=== PATIENT | female | born 1990 | race Caucasian/White ===

== ENCOUNTER 2018-03-05 23:14 | Observation (INO) | payer MEDICAID ==
[2018-03-06] MEDS ORDERED: Ondansetron 4 MG/2 ML SDV IV PRN (00:20)
[2018-03-06] MEDS ORDERED: Lactated Ringers 1,000 ML IV SCH (00:30)
[2018-03-06] MEDS: Acetaminophen 325 MG Tab PO PRN ×2 (01:23→07:49)
[2018-03-06] MEDS ORDERED: Sodium Chloride 0.9% 10 ML Syringe FLUSH PRN (03:36)
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
[2018-03-06] MEDS ORDERED: Prenatal Multivitamin with Calcium/Folic Acid/Iron Tab PO SCH (09:00)
[2018-03-06] MEDS ORDERED: Nitrofurantoin Monohydrate/Macrocrystalline 100 MG Cap PO SCH (09:00)
[2018-03-06] MEDS ORDERED: Acetaminophen/Codeine 300-30 MG Tab PO PRN (09:07)
[2018-03-06 11:55] VITALS: BP 103/66
--- NOTE | 2018-03-06 13:48 | PCM.SN ---
- Free Text/Narrative Note: Lisa presently is doing well. She reports good activity. Earlier today she had some CVA tenderness which she said was 3-4 on scale of 10 10. This is now essentially resolved. Afebrile with normal vital signs. Patient is desiring discharge home. Urine culture is pending. We'll discharge home on Macrobid.
--- NOTE | 2018-03-07 18:00 | PCM.NBDC ---
[place] Discharge Summary - Hospital Course Free Text/Narrative: Patient was transferred from [place] via ambulance for suspected pyelonephritis and possible sepsis. She been treated with Zosyn and with Rocephin. The time she arrived at [facility] she was doing very well. She remained afebrile with minimal pain throughout the rest of her hospital course. Urine culture been done in [place] as well as urinalysis. Culture is pending at this time. Please see admission history and physical for details. On hospital day 2 Lisa presently is doing well. She reports good activity. Earlier today she had some CVA tenderness which she said was 3-4 on scale of 10 10. This is now essentially resolved. Afebrile with normal vital signs. Patient is desiring discharge home. Urine culture is pending. We'll discharge home on Macrobid. - Discharge Data Date of : 89 Date of Discharge: 03/07/18 Discharge Disposition: Home, Self-Care 01 Condition: Good - Discharge Plan Home Medications: Home Meds Vit with Ca/FA/Iron [ Plus Iron] 1 each PO DAILY tablet [Rx] Acetaminophen [Tylenol] 650 mg PO Q4H PRN tablet 03/06/18 [Rx] Nitrofurantoin [place]/Macrocryst [Nitrofurantoin [place]-MCR] 100 mg PO BID #14 cap 03/06/18 [Rx] Instructions: Pyelonephritis, Adult, [id number], Hypokalemia, and Urinary Tract Infection Referrals: Nick Teresa MD [Primary Care Provider] - (Return to clinic1 weekDr. Teresa in follow-up of her pyelonephritis) - Discharge Summary/Plan Comment DC Time >30 min.: No Discharge Summary/Plan:: Discharge instructions: 1. Discharge home 2. Diet, activity and follow-up discussed with patient. Recommend regular diet with increased calories and calcium. 3. Precautions given concern increased UTI symptoms, pain, bleeding, temperature , signs/symptoms of DVT/PE. 4. Medications per home medication was printed, discussed with and given to the patient. 5. Return to clinic-Dr. Teresa[facility] in 2-4 weeks. Diagnosis: Right pyelonephritis, 33 week Condition: Good History - [place] Admission Detail Date of Service: 03/07/18 - Maternal History Mother's Blood Type: A Mother's Rh: Positive [place] Nursery Info & Exam - Exam Exam: See Below - Vital Signs Vital Signs: Last Vital Signs Temp 36.4 C 03/06/18 11:55 Pulse 104 H 03/06/18 11:42 Resp 16 03/06/18 11:55 BP 103/66 03/06/18 11:42 Pulse Ox 100 03/06/18 11:55 Current Weight: 115.212 kg Height: 1.6 m
== END 2018-03-06 14:14 | disposition home or self-care (01) ==
LOC: JD.OBCHECK 23:14 → JD.OB 23:17 → JD.OBCHECK 03-06 00:49 → JD.OB 03-06 00:53
PROVIDERS: ADMIT Obstetrics & Gynecology; ATTEND Obstetrics & Gynecology
DX: O23.02 Infections of kidney in pregnancy, second trimester (principal); N12 Tubulo-interstitial nephritis, not specified as acute or chronic; O99.112 Other diseases of the blood and blood-forming organs and certain disorders involving the immune mechanism complicating pregnancy, second trimester; D69.6 Thrombocytopenia, unspecified; O99.342 Other mental disorders complicating pregnancy, second trimester; F32.9 Major depressive disorder, single episode, unspecified; O26.892 Other specified pregnancy related conditions, second trimester; E87.6 Hypokalemia; Z3A.23 23 weeks gestation of pregnancy
CPT/HCPCS: A9270; J7120; 96360; 96361; G0378; G0379

== ENCOUNTER 2019-10-26 05:44 | Inpatient (IN) | payer MEDICAID ==
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
[~2019-10-26 05:44] MED LIST: Citric Acid/Sodium Citrate Solution 30 ML Cup PO ONE; Metoclopramide 10 MG/2 ML SDV IVPUSH ONE; Ondansetron 4 MG/2 ML SDV IVPUSH PRN; Sodium Chloride 0.9% 10 ML Syringe FLUSH PRN
[2019-10-26] MEDS ORDERED: Oxytocin/Lactated Ringers 20 UNIT/1,000 ML BAG IV SCH (05:45)
[2019-10-26] MEDS: Lactated Ringers 1,000 ML IV SCH ×2 (05:58→07:30)
[2019-10-26] MEDS ORDERED: Citric Acid/Sodium Citrate Solution 30 ML Cup ONE (06:26)
[2019-10-26] MEDS ORDERED: Metoclopramide 10 MG/2 ML SDV ONE (06:27)
--- NOTE | 2019-10-26 07:17 | PCM.PREANE ---
Preanesthetic Assessment - Anesthesia/Transfusion/Family Hx Anesthesia History: Prior Anesthesia Without Reaction Transfusion History: No Prior Transfusion(s) Type of Transfusion Reactions: Reports: Unknown - Review of Systems General: No Symptoms Pulmonary: No Symptoms Cardiovascular: No Symptoms Gastrointestinal: No Symptoms Neurological: No Symptoms Other: Reports: None - Physical Assessment Vital Signs: Last Vital Signs Temp 98.3 F 10/26/19 06:03 Pulse 121 H 10/26/19 06:03 Resp 14 10/26/19 06:03 BP 121/64 10/26/19 06:03 Pulse Ox 98 10/26/19 06:03 Height: 1.6 m Weight: 121.971 kg ASA Class: 2 Mental Status: Alert & Oriented x3 Airway Class: Mallampati = 3 Dentition: Reports: Normal Dentition Thyro-Mental Finger Breadths: 3 Mouth Opening Finger Breadths: 3 ROM/Head Extension: Full Lungs: Clear to Auscultation, Normal Respiratory Effort Cardiovascular: Regular Rate, Regular Rhythm - Lab Values: Laboratory Last Values WBC 8.49 K/mm3 (3.98-10.04) 10/26/19 05:40 RBC 4.41 M/mm3 (3.98-5.22) 10/26/19 05:40 Hgb 13.4 gm/dl (11.2-15.7) 10/26/19 05:40 Hct 41.3 % (34.1-44.9) 10/26/19 05:40 MCV 93.7 fl (79.4-94.8) 10/26/19 05:40 MCH 30.4 pg (25.6-32.2) 10/26/19 05:40 MCHC 32.4 g/dl (32.2-35.5) 10/26/19 05:40 RDW Std Deviation 51.0 fL (36.4-46.3) H 10/26/19 05:40 Plt Count 183 K/mm3 (182-369) 10/26/19 05:40 MPV 11.0 fl (9.4-12.3) 10/26/19 05:40 Neut % (Auto) 60.7 % (34.0-71.1) 10/26/19 05:40 Lymph % (Auto) 30.3 % (19.3-51.7) 10/26/19 05:40 [place] % (Auto) 8.2 % (4.7-12.5) 10/26/19 05:40 Eos % (Auto) 0.5 (0.7-5.8) L 10/26/19 05:40 Baso % (Auto) 0.1 % (0.1-1.2) 10/26/19 05:40 Neut # (Auto) 5.15 K/mm3 (1.56-6.13) 10/26/19 05:40 Lymph # (Auto) 2.57 K/mm3 (1.18-3.74) 10/26/19 05:40 [place] # (Auto) 0.70 K/mm3 (0.24-0.36) H 10/26/19 05:40 Eos # (Auto) 0.04 K/mm3 (0.04-0.36) 10/26/19 05:40 Baso # (Auto) 0.01 K/mm3 (0.01-0.08) 10/26/19 05:40 Blood Type A POSITIVE 10/26/19 05:40 Gel Antibody Screen Negative 10/26/19 05:40 - Allergies Allergies/Adverse Reactions: Allergies Allergy/AdvReac Type Severity Reaction Status Date / Time No Known Allergies Allergy Verified 10/26/19 05:38 - Acknowledgements Anesthesia Type Planned: Spinal Pt an Appropriate Candidate for the Planned Anesthesia: Yes Alternatives and Risks of Anesthesia Discussed w Pt/Guardian: Yes Pt/Guardian Understands and Agrees with Anesthesia Plan: Yes PreAnesthesia Questionnaire HEENT History: Reports: Impaired Vision, Other (See Below) Other HEENT History: needs glasses to see Gastrointestinal History: Reports: GERD Genitourinary History: Reports: Pyelonephritis, UTI, Recurrent ROD FINISHER History: Reports: , Spontaneous Other OB/BYN History: Neurological History: Reports: Migraines Psychiatric History: Reports: Depression Dermatologic History: Reports: Other (See Below) Other Dermatologic History: Eczema - Past Surgical History HEENT Surgical History: Reports: None GI Surgical History: Reports: Appendectomy Other Female Surgeries/Procedures: x3 - SUBSTANCE USE Smoking Status *Q: Never Smoker Second Hand Smoke Exposure: Yes Recreational Drug Use History: No - HOME MEDS Home Medications: Home Meds Vit with Ca/FA/Iron [ Plus Iron] 1 each PO DAILY tablet [Rx] - CURRENT (IN HOUSE) MEDS Current Meds: Current Medications Cefazolin Sodium/Dextrose 2 gm (/ Premix) 50 mls @ 100 mls/hr IV ONETIME ONE Stop: 10/26/19 07:59 Lactated Ringer's (Ringers, Lactated) 1,000 mls @ 125 mls/hr IV ASDIRECTED SOPHIA Last Admin: 10/26/19 05:58 Dose: 125 mls/hr Oxytocin/Lactated Ringer's (Pitocin In Lr 20 Units/1,000 Ml) 20 unit in 1,000 mls @ 500 mls/hr IV TITRATE SOPHIA; Protocol Ondansetron HCl (Zofran) 4 mg IVPUSH Q4H PRN PRN Reason: Nausea/Vomiting Sodium Chloride (Saline Flush) 10 ml FLUSH ASDIRECTED PRN PRN Reason: Keep Vein Open Discontinued Medications Citric Acid/Sodium Citrate (Bicitra Solution) 30 ml PO ONETIME ONE Stop: 10/26/19 05:39 Last Admin: 10/26/19 06:28 Dose: 30 ml Citric Acid/Sodium Citrate (Bicitra Solution) Confirm Administered Dose 30 ml .ROUTE .STK-MED ONE Stop: 10/26/19 06:27 Metoclopramide HCl (Reglan) 10 mg IVPUSH ONETIME ONE Stop: 10/26/19 05:39 Last Admin: 10/26/19 06:29 Dose: 10 mg Metoclopramide HCl (Reglan) Confirm Administered Dose 10 mg .ROUTE .STK-MED ONE Stop: 10/26/19 06:28
[2019-10-26] MEDS ORDERED: Oxytocin 10 Units/1 ML SDV ONE (07:28)
[2019-10-26] MEDS ORDERED: fentaNYL 100 MCG/2 ML SDV ONE (07:28)
[2019-10-26] MEDS ORDERED: Morphine PF 10 MG/10 ML SDV ONE (07:29)
[2019-10-26] MEDS ORDERED: ceFAZolin 2 GM in Premix Bag 1 BAG IV ONE (07:30)
[2019-10-26] MEDS ORDERED: ceFAZolin 1 GM Vial ONE (07:32)
[2019-10-26] MEDS ORDERED: Lactated Ringers 1,000 ML ONE ×2 (08:03→08:22)
[2019-10-26] MEDS: Bupivacaine 0.5% 30 ML SDV ONE ×2 (08:05→08:09)
[2019-10-26] MEDS ORDERED: EPINEPHrine 1 MG/ML SDV ONE (08:09)
[2019-10-26] MEDS ORDERED: Ketorolac 30 MG/ML SDV ONE (08:13)
[2019-10-26] MEDS ORDERED: fentaNYL 100 MCG/2 ML SDV IVPUSH PRN (08:29)
[2019-10-26] MEDS ORDERED: Ondansetron 4 MG/2 ML SDV IVPUSH PRN (08:29)
[2019-10-26] MEDS ORDERED: diphenhydrAMINE 50 MG/ML SDV IVPUSH PRN ×2 (08:29→11:09)
--- NOTE | 2019-10-26 09:00 | PCM.POSTAN ---
POST ANESTHESIA ASSESSMENT - MENTAL STATUS Mental Status: Alert, Oriented - VITAL SIGNS Vital Signs: Last Vital Signs Temp 97.0 F 10/26/19 08:45 Pulse 65 10/26/19 08:45 Resp 8 L 10/26/19 08:45 BP 109/70 10/26/19 08:45 Pulse Ox 97 10/26/19 08:45 - RESPIRATORY Respiratory Status: Respiratory Rate WNL, Airway Patent, O2 Saturation Stable - CARDIOVASCULAR CV Status: Pulse Rate WNL, Blood Pressure Stable - GASTROINTESTINAL GI Status: No Symptoms - PAIN Pain Score: 0 (post SAB) - POST OP HYDRATION Hydration Status: Adequate & Stable
--- NOTE | 2019-10-26 09:06 | PCM.OPNOTE ---
- General Post-Op/Procedure Note Date of Surgery/Procedure: 10/26/19 Operative Procedure(s): Repeat lower uterine segment transverse section through Pfannenstiel skin incision under spinal block. Findings: Are scarring noted in the anterior abdominal wall. The uterine wall was very thin at 2-3 mm. The uterus tubes and ovaries otherwise consistent with term . Amniotic fluid is clear. Baby in vertex presentation. was a baby girl delivered at 0809 hrs. on 10/26/2019. Apgars were 8 and 9. Weight was 3940 g (8 lbs. 11 oz.) Pre Op Diagnosis: 1. 39 week intrauterine . 2. History of previous section 3 desire for repeat section Post-Op Diagnosis: Same Anesthesia Technique: Spinal Other Anesthesia Type: Marcaine 0.5%20 mL no Primary Surgeon: Nick Teresa Secondary Surgeon: Lenny Garcia Anesthesia Provider: Josias Barth Elevated Work Platform Operator: Caron Valdez Reason Elevated Work Platform Operator Was Necessary: Retraction, assistance, patient's safety, quality of care. Fluid Replacement, Intraop: 2,200 Drain/Tube Comments:: Indwelling bladder catheter Complications: None Condition: Good Free Text/Narrative:: Surgery duration: 31 minutes Procedure: The patient is appropriately consented. Patient was transferred to the room and placed in a sitting position. Spinal anesthesia was administered. After confirmation of adequate anesthesia patient was placed in a supine position with a wedge under her right side to facilitate left lateral positioning. The patient was prepped and draped in usual fashion after Powell catheter was already placed . The anesthetic was checked and found to be adequate. 20 mL of Marcaine 0.5% was injected locally in the Pfannenstiel incision site. The Pfannenstiel skin incision was then made and carried down through skin, subcutaneous and fascial layers. The fascia was then undermined superiorly and inferiorly to allow for adequate operating room. The recti muscles midline and preperitoneal fat was bluntly dissected. Peritoneal cavity was entered longitudinally. The vesicouterine peritoneum was then incised transversely and bladder flap was developed. Myometrium was incised transversely to the level of the amniotic sac. This incision was extended bilaterally in a blunt fashion. The amniotic sac was then ruptured resulting in clear amniotic fluid. A hand is placed in the low uterine segment and the baby's head was brought forth through the incision. The baby was completely delivered using fundal pressure in a routine fashion. The nose and mouth were bulb suctioned. Baby's cord was clamped x2 cut and baby was handed off to nursery personnel. Placenta was expressed after cord blood was obtained. Uterus was then exteriorized to allow for easier closure. The cervix was assessed and found to be dilated adequately to allow egress of blood. The uterus was closed in 2 layers. The first layer a running locked suture of 0 Monocryl, the second layer a running locked vertical mattress suture of 0 Monocryl. [id number] suture was placed at mid incision to control 1 bleeder. Hemostasis confirmed at this time. Sponge instrument needle counts are correct. The uterus was returned to the abdominal cavity and lateral gutters were cleared of blood. Once again sponge needle counts are correct. The anterior abdominal wall was closed with a #1 PDS suture from angle to angle. The subcutaneous area was found to be free of any bleeders. interrupted sutures of 3-0 Monocryl were used to reapproximate the subcutaneous layer.Skin was closed with a running subcuticular stitch of 3-0 Monocryl in a vertical mattress suture fashion using a [place] needle. Prineo mesh/glue was then applied to further approximate the incision. It should be noted that patient received 2 g of Ancef preoperatively for infection prophylaxis and had Pitocin infused after delivery of the placenta to facilitate uterine contraction. She also had sequential compression stockings in place for DVT prophylaxis. Patient was discharged from the operating room in satisfactory condition.
[2019-10-26] MEDS ORDERED: Dextrose 5%-Lactated Ringers 1,000 ML IV SCH (11:09)
[2019-10-26] MEDS ORDERED: ePHEDrine 50 MG/ML SDV IVPUSH PRN (11:09)
[2019-10-26] MEDS ORDERED: Ondansetron 4 MG/2 ML SDV IV PRN (11:09)
[2019-10-26] MEDS ORDERED: Naloxone 0.4 MG/ML SDV IVPUSH PRN (11:09)
[2019-10-26] MEDS ORDERED: Acetaminophen/oxyCODONE 325-5 MG Tab PO PRN ×2 (11:09)
[2019-10-26] MEDS ORDERED: Docusate Sodium 100 MG Cap PO PRN (11:09)
[2019-10-26] MEDS: Simethicone 80 MG Tab.Chew PO SCH ×4 (11:33→20:42)
[2019-10-26] MEDS: Ibuprofen 800 MG Tab PO SCH ×2 (14:49→22:41)
[2019-10-26] MEDS ORDERED: Lactated Ringers 1,000 ML IV ONE (16:17)
[2019-10-26] MEDS: Prenatal Multivitamin with Calcium/Folic Acid/Iron Tab PO SCH (19:37)
[2019-10-27] MEDS: Ibuprofen 800 MG Tab PO SCH ×2 (06:27→14:45)
[2019-10-27] MEDS: Simethicone 80 MG Tab.Chew PO SCH ×2 (09:43→13:00)
[2019-10-27] MEDS: Prenatal Multivitamin with Calcium/Folic Acid/Iron Tab PO SCH (09:43)
--- NOTE | 2019-10-27 09:59 | PCM.SN ---
- Free Text/Narrative Note: day one/postop day 1 Afebrile. Holding baby having no problems or complaints. Uterus involuting normally incision normal no leg cramping no heavy vaginal bleeding. Probably home tomorrow. No chest congestion or difficulty breathing.
[2019-10-27 14:47] VITALS: BP 139/81; PULSE 101
--- NOTE | 2019-10-27 16:28 | PCM.DCSUM1 ---
Discharge Summary - Hospital Course Free Text/Narrative:: [facility] Post-Op/Procedure Note Patient Name: VALENTE BENNETT Date of : 89 Patient Status: Inpatient Attending Provider: Nick Teresa Date: 10/26/19 09:02 Initialization Date: 10/26/19 09:02 - General Post-Op/Procedure Note Date of Surgery/Procedure: 10/26/19 Operative Procedure(s): Repeat lower uterine segment transverse section through Pfannenstiel skin incision under spinal block. Findings: Are scarring noted in the anterior abdominal wall. The uterine wall was very thin at 2-3 mm. The uterus tubes and ovaries otherwise consistent with term . Amniotic fluid is clear. Baby in vertex presentation. was a baby girl delivered at 0809 hrs. on 10/26/2019. Apgars were 8 and 9. Weight was 3940 g (8 lbs. 11 oz.) Pre Op Diagnosis: 1. 39 week intrauterine . 2. History of previous section 3 desire for repeat section Post-Op Diagnosis: Same Anesthesia Technique: Spinal Other Anesthesia Type: Marcaine 0.5%20 mL no Primary Surgeon: Nick Teresa Secondary Surgeon: Lenny Garcia Anesthesia Provider: Josias Barth Primary Mill Roller: Caron Valdez Reason Primary Mill Roller Was Necessary: Retraction, assistance, patient's safety, quality of care. Fluid Replacement, Intraop: 2,200 Drain/Tube Comments:: Indwelling bladder catheter Complications: None Condition: Good Free Text/Narrative:: Surgery duration: 31 minutes Procedure: The patient is appropriately consented. Patient was transferred to the room and placed in a sitting position. Spinal anesthesia was administered. After confirmation of adequate anesthesia patient was placed in a supine position with a wedge under her right side to facilitate left lateral positioning. The patient was prepped and draped in usual fashion after Powell catheter was already placed . The anesthetic was checked and found to be adequate. 20 mL of Marcaine 0.5% was injected locally in the Pfannenstiel incision site. The Pfannenstiel skin incision was then made and carried down through skin, subcutaneous and fascial layers. The fascia was then undermined superiorly and inferiorly to allow for adequate operating room. The recti muscles midline and preperitoneal fat was bluntly dissected. Peritoneal cavity was entered longitudinally. The vesicouterine peritoneum was then incised transversely and bladder flap was developed. Myometrium was incised transversely to the level of the amniotic sac. This incision was extended bilaterally in a blunt fashion. The amniotic sac was then ruptured resulting in clear amniotic fluid. A hand is placed in the low uterine segment and the baby's head was brought forth through the incision. The baby was completely delivered using fundal pressure in a routine fashion. The nose and mouth were bulb suctioned. Baby's cord was clamped x2 cut and baby was handed off to nursery personnel. Placenta was expressed after cord blood was obtained. Uterus was then exteriorized to allow for easier closure. The cervix was assessed and found to be dilated adequately to allow egress of blood. The uterus was closed in 2 layers. The first layer a running locked suture of 0 Monocryl, the second layer a running locked vertical mattress suture of 0 Monocryl. [id number] suture was placed at mid incision to control 1 bleeder. Hemostasis confirmed at this time. Sponge instrument needle counts are correct. The uterus was returned to the abdominal cavity and lateral gutters were cleared of blood. Once again sponge needle counts are correct. The anterior abdominal wall was closed with a #1 PDS suture from angle to angle. The subcutaneous area was found to be free of any bleeders. interrupted sutures of 3-0 Monocryl were used to reapproximate the subcutaneous layer.Skin was closed with a running subcuticular stitch of 3-0 Monocryl in a vertical mattress suture fashion using a Rome needle. Prineo mesh/glue was then applied to further approximate the incision. It should be noted that patient received 2 g of Ancef preoperatively for infection prophylaxis and had Pitocin infused after delivery of the placenta to facilitate uterine contraction. She also had sequential compression stockings in place for DVT prophylaxis. Patient was discharged from the operating room in satisfactory condition. HPI Initial Comments: [facility] Post-Op/Procedure Note Patient Name: VALENTE BENNETT Date of : 89 Patient Status: Inpatient Attending Provider: Nick Teresa Date: 10/26/19 09:02 Initialization Date: 10/26/19 09:02 - General Post-Op/Procedure Note Date of Surgery/Procedure: 10/26/19 Operative Procedure(s): Repeat lower uterine segment transverse section through Pfannenstiel skin incision under spinal block. Findings: Are scarring noted in the anterior abdominal wall. The uterine wall was very thin at 2-3 mm. The uterus tubes and ovaries otherwise consistent with term . Amniotic fluid is clear. Baby in vertex presentation. was a baby girl delivered at 0809 hrs. on 10/26/2019. Apgars were 8 and 9. Weight was 3940 g (8 lbs. 11 oz.) Pre Op Diagnosis: 1. 39 week intrauterine . 2. History of previous section 3 desire for repeat section Post-Op Diagnosis: Same Anesthesia Technique: Spinal Other Anesthesia Type: Marcaine 0.5%20 mL no Primary Surgeon: Nick Teresa Secondary Surgeon: Lenny Garcia Anesthesia Provider: Josias Barth Primary Mill Roller: Caron Valdez Reason Primary Mill Roller Was Necessary: Retraction, assistance, patient's safety, quality of care. Fluid Replacement, Intraop: 2,200 Drain/Tube Comments:: Indwelling bladder catheter Complications: None Condition: Good Free Text/Narrative:: Surgery duration: 31 minutes Procedure: The patient is appropriately consented. Patient was transferred to the room and placed in a sitting position. Spinal anesthesia was administered. After confirmation of adequate anesthesia patient was placed in a supine position with a wedge under her right side to facilitate left lateral positioning. The patient was prepped and draped in usual fashion after Powell catheter was already placed . The anesthetic was checked and found to be adequate. 20 mL of Marcaine 0.5% was injected locally in the Pfannenstiel incision site. The Pfannenstiel skin incision was then made and carried down through skin, subcutaneous and fascial layers. The fascia was then undermined superiorly and inferiorly to allow for adequate operating room. The recti muscles midline and preperitoneal fat was bluntly dissected. Peritoneal cavity was entered longitudinally. The vesicouterine peritoneum was then incised transversely and bladder flap was developed. Myometrium was incised transversely to the level of the amniotic sac. This incision was extended bilaterally in a blunt fashion. The amniotic sac was then ruptured resulting in clear amniotic fluid. A hand is placed in the low uterine segment and the baby's head was brought forth through the incision. The baby was completely delivered using fundal pressure in a routine fashion. The nose and mouth were bulb suctioned. Baby's cord was clamped x2 cut and baby was handed off to nursery personnel. Placenta was expressed after cord blood was obtained. Uterus was then exteriorized to allow for easier closure. The cervix was assessed and found to be dilated adequately to allow egress of blood. The uterus was closed in 2 layers. The first layer a running locked suture of 0 Monocryl, the second layer a running locked vertical mattress suture of 0 Monocryl. [id number]-io-hqigg suture was placed at mid incision to control 1 bleeder. Hemostasis confirmed at this time. Sponge instrument needle counts are correct. The uterus was returned to the abdominal cavity and lateral gutters were cleared of blood. Once again sponge needle counts are correct. The anterior abdominal wall was closed with a #1 PDS suture from angle to angle. The subcutaneous area was found to be free of any bleeders. interrupted sutures of 3-0 Monocryl were used to reapproximate the subcutaneous layer.Skin was closed with a running subcuticular stitch of 3-0 Monocryl in a vertical mattress suture fashion using a Rome needle. Prineo mesh/glue was then applied to further approximate the incision. It should be noted that patient received 2 g of Ancef preoperatively for infection prophylaxis and had Pitocin infused after delivery of the placenta to facilitate uterine contraction. She also had sequential compression stockings in place for DVT prophylaxis. Patient was discharged from the operating room in satisfactory condition. Brief History: [facility] . Post-Op/Procedure Note. [facility]: [id number]. Date of : Patient Status: Inpatient. Attending Provider: Nick Teresa FAccount Number : [id number]. Date: 10/26/19 09:02Initialization Date: 10/26/19 09:02. - General Post-Op/Procedure Note. Date of Surgery/Procedure: 10/26/19. Operative Procedure(s): Repeat lower uterine segment transverse section through Pfannenstiel skin incision under spinal block. Findings: Are scarring noted in the anterior abdominal wall. The uterine wall was very thin at 2-3 mm. The uterus tubes and ovaries otherwise consistent with term . Amniotic fluid is clear. Baby in vertex presentation. Infant was a baby girl delivered at 0809 hrs. on 10/26/2019. Apgars were 8 and 9. Weight was 3940 g (8 lbs. 11 oz.). Pre Op Diagnosis: 1. 39 week intrauterine . 2. History of previous section 3 desire for repeat section. Post-Op Diagnosis: Same. Anesthesia Technique: Spinal. Other Anesthesia Type: Marcaine 0.5%20 mL no. Primary Surgeon: Nick Teresa. Secondary Surgeon: Lenny Garcia. Anesthesia Provider: Josias Barth. Primary Mill Roller: Caron Valdez Reason Primary Mill Roller Was Necessary: Retraction, assistance, patient's safety, quality of care. Fluid Replacement, Intraop: 2,200. Drain/Tube Comments:: Indwelling bladder catheter. Complications: None. Condition: Good. Free Text/Narrative:: Surgery duration: 31 minutes. Procedure: The patient is appropriately consented. Patient was transferred to the room and placed in a sitting position. Spinal anesthesia was administered. After confirmation of adequate anesthesia patient was placed in a supine position with a wedge under her right side to facilitate left lateral positioning. The patient was prepped and draped in usual fashion after Powell catheter was already placed . The anesthetic was checked and found to be adequate. 20 mL of Marcaine 0.5% was injected locally in the Pfannenstiel incision site. The Pfannenstiel skin incision was then made and carried down through skin, subcutaneous and fascial layers. The fascia was then undermined superiorly and inferiorly to allow for adequate operating room. The recti muscles midline and preperitoneal fat was bluntly dissected. Peritoneal cavity was entered longitudinally. The vesicouterine peritoneum was then incised transversely and bladder flap was developed. Myometrium was incised transversely to the level of the amniotic sac. This incision was extended bilaterally in a blunt fashion. The amniotic sac was then ruptured resulting in clear amniotic fluid. A hand is placed in the low uterine segment and the baby' s head was brought forth through the incision. The baby was completely delivered using fundal pressure in a routine fashion. The nose and mouth were bulb suctioned. Baby's cord was clamped x2 cut and baby was handed off to nursery personnel. Placenta was expressed after cord blood was obtained. Uterus was then exteriorized to allow for easier closure. The cervix was assessed and found to be dilated adequately to allow egress of blood. The uterus was closed in 2 layers. The first layer a running locked suture of 0 Monocryl, the second layer a running locked vertical mattress suture of 0 Monocryl. Pebkgb-gf-pkhxk suture was placed at mid incision to control 1 bleeder. Hemostasis confirmed at this time. Sponge instrument needle counts are correct. The uterus was returned to the abdominal cavity and lateral gutters were cleared of blood. Once again sponge needle counts are correct. The anterior abdominal wall was closed with a #1 PDS suture from angle to angle. The subcutaneous area was found to be free of any bleeders. interrupted sutures of 3-0 Monocryl were used to reapproximate the subcutaneous layer.Skin was closed with a running subcuticular stitch of 3- 0 Monocryl in a vertical mattress suture fashion using a Rome needle. Prineo mesh/glue was then applied to further approximate the incision. It should be noted that patient received 2 g of Ancef preoperatively for infection prophylaxis and had Pitocin infused after delivery of the placenta to facilitate uterine contraction. She also had sequential compression stockings in place for DVT prophylaxis. Patient was discharged from the operating room in satisfactory condition. Diagnosis: Stroke: No - Discharge Data Discharge Date: 10/27/19 Discharge Disposition: Home, Self-Care 01 Condition: Good - Referral to Home Health Primary Care Physician: Nick Teresa MD - Discharge Diagnosis/Problem(s) (1) 38 weeks gestation of SNOMED Code(s): 80124222 ICD Code: Z3A.38 - 38 WEEKS GESTATION OF Status: Acute Current Visit: No (2) delivery delivered SNOMED Code(s): 932436226 ICD Code: O82 - ENCOUNTER FOR DELIVERY WITHOUT INDICATION Status: Acute Current Visit: No (3) History of delivery affecting SNOMED Code(s): 243205991, 561084118 ICD Code: O34.219 - MATERNAL CARE FOR UNSP TYPE SCAR FROM PREVIOUS DEL Status: Acute Current Visit: No - Patient Summary/Data Operative Procedure(s) Performed: Repeat lower uterine segment transverse section through Pfannenstiel skin incision under spinal block. Complications: None Consults: None Hospital Course: Uneventful Redundant suture cut at skin line prior to dismissal - Patient Instructions Diet: Usual Diet as Tolerated Driving: Do Not Drive (2 weeks) Showering/Bathing: May Shower, No Tub Bathing/Swimming (6 weeks) Wound/Incision Care: Keep Operative Site/Wound Site Clean and Dry Notify Provider of: Fever, Increased Pain, Swelling and Redness, Drainage, Nausea and/or Vomiting - Discharge Plan *PRESCRIPTION DRUG MONITORING PROGRAM REVIEWED*: Not Applicable *COPY OF PRESCRIPTION DRUG MONITORING REPORT IN PATIENT WHITNEY: Not Applicable Prescriptions/Med Rec: Acetaminophen [Tylenol] 650 mg PO Q6H PRN #50 tab PRN Reason: Pain Home Medications: Home Meds Vit with Ca/FA/Iron [ Plus Iron] 1 each PO DAILY tablet [Rx] Acetaminophen [Tylenol] 650 mg PO Q6H PRN #50 tab 10/27/19 [Rx] Docusate Sodium [Colace] 100 mg PO Q12H PRN cap 10/27/19 [Rx] Ibuprofen [Motrin] 600 mg PO Q6H tablet 10/27/19 [Rx] Simethicone 160 mg PO QID tab.chew 10/27/19 [Rx] Referrals: Nick Teresa MD [Primary Care Provider] - (Patient to call Tuesday for follow-up appointment in 2 weeks) - Discharge Summary/Plan Comment DC Time >30 min.: No - Patient Data Vitals - Most Recent: Last Vital Signs Temp 98.8 F 10/27/19 14:46 Pulse 101 H 10/27/19 14:46 Resp 18 10/27/19 08:44 BP 139/81 10/27/19 14:46 Pulse Ox 97 10/27/19 14:46 Weight - Most Recent: 268 lb 14.4 oz I&O - Last 24 hours: Intake & Output 10/27/19 10/27/19 10/27/19 06:59 14:59 22:59 Intake Total 200 Output Total 1120 1000 Balance -1120 -800 Lab Results - Last 24 hrs: Laboratory Results - last 24 hr 10/26/19 10/27/19 Range/Units 05:40 06:40 WBC 6.81 (3.98-10.04) K/mm3 RBC 3.57 L (3.98-5.22) M/mm3 Hgb 10.8 L D (11.2-15.7) gm/dl Hct 34.2 (34.1-44.9) % MCV 95.8 H (79.4-94.8) fl MCH 30.3 (25.6-32.2) pg MCHC 31.6 L (32.2-35.5) g/dl RDW Std Deviation 51.3 H (36.4-46.3) fL Plt Count 122 L (182-369) K/mm3 MPV 10.9 (9.4-12.3) fl Neut % (Auto) 73.6 H (34.0-71.1) % Lymph % (Auto) 16.2 L (19.3-51.7) % [place] % (Auto) 8.8 (4.7-12.5) % Eos % (Auto) 1.2 (0.7-5.8) Baso % (Auto) 0.1 (0.1-1.2) % Neut # (Auto) 5.01 (1.56-6.13) K/mm3 Lymph # (Auto) 1.10 L (1.18-3.74) K/mm3 [place] # (Auto) 0.60 H (0.24-0.36) K/mm3 Eos # (Auto) 0.08 (0.04-0.36) K/mm3 Baso # (Auto) 0.01 (0.01-0.08) K/mm3 RPR Non-reactive (NONREACTIVE) Med Orders - Current: Current Medications Diphenhydramine HCl (Benadryl) 25 mg IVPUSH Q6H PRN PRN Reason: Itching or Nausea Last Admin: 10/26/19 11:33 Dose: 25 mg Docusate Sodium (Colace) 100 mg PO Q12H PRN PRN Reason: Constipation Last Admin: 10/26/19 20:41 Dose: 100 mg Ephedrine Sulfate (Ephedrine Sulfate) 5 mg IVPUSH SEECOMMENT PRN PRN Reason: Other Ibuprofen (Motrin) 800 mg PO Q8H SOPHIA Last Admin: 10/27/19 14:45 Dose: 800 mg Naloxone HCl (Narcan) 0.1 mg IVPUSH SEECOMMENT PRN PRN Reason: Respiratory Depression Ondansetron HCl (Zofran) 4 mg IV Q4H PRN PRN Reason: Nausea/Vomiting Oxycodone/Acetaminophen (Percocet 325-5 Mg) 1 tab PO Q4H PRN PRN Reason: Pain (moderate 4-6) Oxycodone/Acetaminophen (Percocet 325-5 Mg) 2 tab PO Q4H PRN PRN Reason: Pain (severe 7-10) Last Admin: 10/26/19 20:42 Dose: 2 tab Prenat Multivit/[place]/Iron/Folic Ac ( Plus Iron) 1 each PO DAILY [facility] Last Admin: 10/27/19 09:43 Dose: 1 each Simethicone (Simethicone) 160 mg PO QID [facility] Last Admin: 10/27/19 13:00 Dose: 160 mg Discontinued Medications Bupivacaine HCl (Marcaine 0.5%) Confirm Administered Dose 30 ml .ROUTE .STK-MED ONE Stop: 10/26/19 07:09 Last Admin: 10/26/19 08:05 Dose: 20 ml Cefazolin Sodium (Ancef) Confirm Administered Dose 3 gm .ROUTE .STK-MED ONE Stop: 10/26/19 07:33 Citric Acid/Sodium Citrate (Bicitra Solution) 30 ml PO ONETIME ONE Stop: 10/26/19 05:39 Last Admin: 10/26/19 06:28 Dose: 30 ml Citric Acid/Sodium Citrate (Bicitra Solution) Confirm Administered Dose 30 ml .ROUTE .STK-MED ONE Stop: 10/26/19 06:27 Last Admin: 10/26/19 07:29 Dose: Not Given Diphenhydramine HCl (Benadryl) 25 mg IVPUSH Q6H PRN PRN Reason: Pruritis Epinephrine HCl (Adrenalin) Confirm Administered Dose 1 mg .ROUTE .STK-MED ONE Stop: 10/26/19 08:10 Fentanyl (Sublimaze) Confirm Administered Dose 100 mcg .ROUTE .STK-MED ONE Stop: 10/26/19 07:29 Fentanyl (Sublimaze) 50 mcg IVPUSH Q5M PRN PRN Reason: Pain Cefazolin Sodium/Dextrose 2 gm (/ Premix) 50 mls @ 100 mls/hr IV ONETIME ONE Stop: 10/26/19 07:59 Last Admin: 10/26/19 18:34 Dose: Not Given Lactated Ringer's (Ringers, Lactated) 1,000 mls @ 125 mls/hr IV ASDIRECTED [facility] Last Admin: 10/26/19 07:30 Dose: 125 mls/hr Oxytocin/Lactated Ringer's (Pitocin In Lr 20 Units/1,000 Ml) 20 unit in 1,000 mls @ 500 mls/hr IV TITRATE SOPHIA; Protocol Lactated Ringer's (Ringers, Lactated) Confirm Administered Dose 1,000 mls @ as directed .ROUTE .STK-MED ONE Stop: 10/26/19 08:04 Lactated Ringer's (Ringers, Lactated) Confirm Administered Dose 1,000 mls @ as directed .ROUTE .STK-MED ONE Stop: 10/26/19 08:23 Dextrose/Lactated Ringer's (Dextrose 5%-Lactated Ringers) 1,000 mls @ 125 mls/ hr IV ASDIRECTED [facility] Stop: 10/26/19 19:08 Last Admin: 10/26/19 11:34 Dose: 125 mls/hr Lactated Ringer's (Ringers, Lactated) 1,000 mls @ 999 mls/hr IV .BOLUS ONE Stop: 10/26/19 17:17 Last Admin: 10/26/19 16:51 Dose: 999 mls/hr Ketorolac Tromethamine (Toradol) Confirm Administered Dose 30 mg .ROUTE .STK- MED ONE Stop: 10/26/19 08:14 Metoclopramide HCl (Reglan) 10 mg IVPUSH ONETIME ONE Stop: 10/26/19 05:39 Last Admin: 10/26/19 06:29 Dose: 10 mg Metoclopramide HCl (Reglan) Confirm Administered Dose 10 mg .ROUTE .STK-MED ONE Stop: 10/26/19 06:28 Last Admin: 10/26/19 07:29 Dose: Not Given Morphine Sulfate (Duramorph Pf) Confirm Administered Dose 10 mg .ROUTE .STK-MED ONE Stop: 10/26/19 07:30 Ondansetron HCl (Zofran) 4 mg IVPUSH Q4H PRN PRN Reason: Nausea/Vomiting Ondansetron HCl (Zofran) 4 mg IVPUSH ONETIME PRN PRN Reason: Nausea/Vomiting Stop: 10/26/19 18:00 Oxytocin (Pitocin) Confirm Administered Dose 40 unit .ROUTE .STK-MED ONE Stop: 10/26/19 07:29 Sodium Chloride (Saline Flush) 10 ml FLUSH ASDIRECTED PRN PRN Reason: Keep Vein Open
--- NOTE | 2019-10-28 13:04 | PCM48HPAN ---
Post Anesthesia Note - EVALUATION WITHIN 48HRS OF ANESTHETIC Vital Signs in Normal Range: Yes Patient Participated in Evaluation: Yes Respiratory Function Stable: Yes Airway Patent: Yes Cardiovascular Function Stable: Yes Hydration Status Stable: Yes Pain Control Satisfactory: Yes Nausea and Vomiting Control Satisfactory: Yes Mental Status Recovered: Yes Vital Signs: Last Vital Signs Temp 98.8 F 10/27/19 14:46 Pulse 101 H 10/27/19 14:46 Resp 18 10/27/19 08:44 BP 139/81 10/27/19 14:46 Pulse Ox 97 10/27/19 14:46 - COMMENTS/OBSERVATIONS Free Text/Narrative:: Patient has left the hospital on 10/27/19. The phone evaluation was done. Patient is on her postoperative day 2. Stated understanding about possible backaches following epidural anesthesia. Reports no back soreness at this time. Explanation given about importance of avoiding back straining. Denies any headache or lightheadedness at this time. Comfortable now. Ambulating, no difficulty urinating.
== END 2019-10-27 17:30 | disposition home or self-care (01) | DRG 788 ==
LOC: JD.MS 05:44 → JD.OB 05:45
PROVIDERS: ADMIT Obstetrics & Gynecology; ATTEND Obstetrics & Gynecology
PROC: 10D00Z1 Extraction of Products of Conception, Low, Open Approach (ICD-10-PCS; principal; 2019-10-26)
DX: O34.211 Maternal care for low transverse scar from previous cesarean delivery (principal); Z37.0 Single live birth; Z90.49 Acquired absence of other specified parts of digestive tract; Z3A.39 39 weeks gestation of pregnancy
CPT/HCPCS: 36415; 59025; 85025; 86592; 86850; 86900; 86901; A9270-GY; J0171; J0690; J1200; J1885; J2270; J2590; J2765; J3010; J3490; J7120; J7121

== ENCOUNTER 2021-09-28 20:50 | Day surgery (SDC) | payer MEDICAID, OTHER, SELFPAY ==
[2021-09-28] MEDS ORDERED: Lidocaine 1% 4 ML ONE (21:40)
[2021-09-28] MEDS ORDERED: Ondansetron 4 MG/2 ML SDV ONE (21:40)
[2021-09-28] MEDS ORDERED: Propofol 200 MG/20 ML SDV ONE (21:41)
[2021-09-28] MEDS ORDERED: fentaNYL 250 MCG/5 ML SDV ONE (21:41)
[2021-09-28] MEDS ORDERED: Midazolam 1 MG/ML 2 ML SDV ONE (21:41)
[2021-09-28] MEDS: Lactated Ringers 1,000 ML IV SCH ×2 (21:56→23:05)
[2021-09-28] MEDS ORDERED: Ketamine 500 mg/10 ML MDV ONE (22:14)
[2021-09-28] MEDS ORDERED: Ketorolac 30 MG/ML SDV ONE (22:26)
[2021-09-28] MEDS ORDERED: Ondansetron 4 MG/2 ML SDV IVPUSH PRN (22:37)
[2021-09-28] MEDS ORDERED: fentaNYL 100 MCG/2 ML SDV IVPUSH PRN (22:37)
[2021-09-28] MEDS ORDERED: HYDROmorphone 0.5 MG/0.5 ML Syringe IVPUSH PRN (22:37)
[2021-09-29] MEDS ORDERED: Ibuprofen 600 MG Tab PO PRN (00:04)
[2021-09-29 04:55] VITALS: PULSE 86
[2021-09-29 06:56] VITALS: BP 100/57
== END 2021-09-29 08:40 | disposition home or self-care (01) ==
LOC: JD.ED 20:50 → JD.SDS 21:36 → JD.OB 22:45 → JD.SDS 09-29 08:40
PROVIDERS: ATTEND Obstetrics & Gynecology
DX: Z53.21 Procedure and treatment not carried out due to patient leaving prior to being seen by health care provider (principal)
CPT/HCPCS: J1885; J2250; J2405; J2704; J3010; J7120; 01965; J3490

== ENCOUNTER 2023-09-07 04:49 | Inpatient (IN) | payer MEDICAID ==
[~2023-09-07 04:49] MED LIST changes: -Citric Acid/Sodium Citrate Solution 30 ML Cup PO ONE; -Metoclopramide 10 MG/2 ML SDV IVPUSH ONE; -Ondansetron 4 MG/2 ML SDV IVPUSH PRN
[2023-09-07] MEDS ORDERED: Lactated Ringers 1,000 ML IV SCH (05:00)
[2023-09-07] MEDS ORDERED: Oxytocin/Lactated Ringers 30 UNIT/500 ML BAG IV SCH ×2 (05:30→10:32)
[2023-09-07] MEDS: Lactated Ringers 1,000 ML IV SCH ×4 (05:46→15:45)
[2023-09-07 05:59] LABS: BASOPHILS PERCENT AUTO 0.1 % (0.0-1.0); EOSINOPHILS ABSOLUTE AUTO 0.1 K/mm3 (0.0-0.4); EOSINOPHILS PERCENT AUTO 0.9 % (0.0-6.0); HEMATOCRIT 36.2 % (37.0-47.0); HEMOGLOBIN 12.1 gm/dl (12.0-16.0); IMMATURE GRAN ABSOLUTE AUTO 0.05 K/mm3 (0.00-0.05); IMMATURE GRAN PERCENT AUTO 0.6 % (0.0-0.4); LYMPHOCYTES ABSOLUTE AUTO 2.3 K/mm3 (1.0-4.8); LYMPHOCYTES PERCENT AUTO 29.3 % (24.0-44.0); MEAN CORPUSCULAR HEMOGLOBIN 30.6 pg (28.0-32.0); MEAN CORPUSCULAR HGB CONC 33.4 g/dl (32.0-36.0); MEAN CORPUSCULAR VOLUME 91.6 fl (83.0-99.0); MEAN PLATELET VOLUME 11.4 fl (9.4-12.3); MONOCYTES ABSOLUTE AUTO 0.6 K/mm3 (0.0-0.8); MONOCYTES PERCENT AUTO 7.3 % (0.0-8.0); NEUTROPHILS ABSOLUTE AUTO 4.9 K/mm3 (1.8-7.7); NEUTROPHILS PERCENT AUTO 61.8 % (41.0-71.0); PLATELET COUNT,PLT 211 K/mm3 (150-400); RED BLOOD CELL COUNT 3.95 M/mm3 (4.10-5.30); WHITE BLOOD CELL COUNT,WBC 7.98 K/mm3 (3.9-11.3)
[2023-09-07] MEDS ORDERED: Lactated Ringers 1,000 ML ONE ×3 (06:49→08:44)
[2023-09-07] MEDS ORDERED: Oxytocin 10 Units/1 ML SDV ONE ×2 (06:59→08:51)
[2023-09-07] MEDS ORDERED: fentaNYL 100 MCG/2 ML SDV ONE (06:59)
[2023-09-07] MEDS ORDERED: ceFAZolin 2 GM Vial ONE ×2 (07:00→07:30)
[2023-09-07] MEDS ORDERED: Morphine PF 10 MG/10 ML SDV ONE (07:00)
[2023-09-07] MEDS ORDERED: Bupivacaine 0.5% 30 ML SDV ONE (07:27)
[2023-09-07] MEDS ORDERED: Metoclopramide 10 MG/2 ML SDV IVPUSH ONE (08:00)
[2023-09-07] MEDS ORDERED: Citric Acid/Sodium Citrate Solution 30 ML Cup PO ONE (08:00)
[2023-09-07] MEDS ORDERED: Lidocaine 1% 5 ML VIAL ONE (08:23)
[2023-09-07] MEDS ORDERED: Phenylephrine 1% 10 MG/ML SDV ONE (08:29)
[2023-09-07] MEDS ORDERED: fentaNYL 100 MCG/2 ML SDV IVPUSH PRN (08:49)
[2023-09-07] MEDS ORDERED: diphenhydrAMINE 50 MG/ML SDV IVPUSH PRN ×2 (08:49→10:32)
[2023-09-07] MEDS ORDERED: Ondansetron 4 MG/2 ML SDV IVPUSH PRN ×2 (08:49→11:21)
[2023-09-07] MEDS ORDERED: Ketorolac 30 MG/ML SDV ONE (08:55)
[2023-09-07] MEDS ORDERED: Ondansetron 4 MG/2 ML SDV ONE (08:59)
[2023-09-07] MEDS: Sodium Chloride 0.9% 10 ML Syringe FLUSH SCH (10:29)
[2023-09-07] MEDS ORDERED: ePHEDrine 50 MG/ML SDV IVPUSH PRN (10:32)
[2023-09-07] MEDS ORDERED: Acetaminophen/oxyCODONE 325-5 MG Tab PO PRN (10:32)
[2023-09-07] MEDS ORDERED: Naloxone 0.4 MG/ML SDV IVPUSH PRN (10:32)
[2023-09-07] MEDS ORDERED: Dextrose 5%-Lactated Ringers 1,000 ML IV SCH (10:32)
[2023-09-07] MEDS: Ketorolac 30 MG/ML SDV IVPUSH SCH ×2 (15:26→20:43)
[2023-09-07] MEDS: Simethicone 80 MG Tab.Chew PO SCH ×3 (15:27→20:43)
[2023-09-07] MEDS: Docusate Sodium 100 MG Cap PO SCH (20:43)
[2023-09-07] MEDS ORDERED: Magnesium Hydroxide 400 MG/5 ML Susp 30 ML Cup PO PRN (21:00)
[2023-09-08] MEDS: Ketorolac 30 MG/ML SDV IVPUSH SCH (03:52)
[2023-09-08 07:22] LABS: HEMATOCRIT 31.1 % (37.0-47.0); MEAN CORPUSCULAR HEMOGLOBIN 30.6 pg (28.0-32.0); MEAN CORPUSCULAR HGB CONC 32.8 g/dl (32.0-36.0); MEAN CORPUSCULAR VOLUME 93.4 fl (83.0-99.0); RED BLOOD CELL COUNT 3.33 M/mm3 (4.10-5.30); WHITE BLOOD CELL COUNT,WBC 6.77 K/mm3 (3.9-11.3)
[2023-09-08 07:23] LABS: BASOPHILS PERCENT AUTO 0.1 % (0.0-1.0); EOSINOPHILS ABSOLUTE AUTO 0.1 K/mm3 (0.0-0.4); EOSINOPHILS PERCENT AUTO 1.6 % (0.0-6.0); HEMOGLOBIN 10.2 gm/dl (12.0-16.0); IMMATURE GRAN ABSOLUTE AUTO 0.03 K/mm3 (0.00-0.05); IMMATURE GRAN PERCENT AUTO 0.4 % (0.0-0.4); LYMPHOCYTES PERCENT AUTO 14.9 % (24.0-44.0); MEAN PLATELET VOLUME 11.8 fl (9.4-12.3); MONOCYTES ABSOLUTE AUTO 0.6 K/mm3 (0.0-0.8); MONOCYTES PERCENT AUTO 8.4 % (0.0-8.0); NEUTROPHILS PERCENT AUTO 74.6 % (41.0-71.0); PLATELET COUNT,PLT 127 K/mm3 (150-400)
[2023-09-08] MEDS: Simethicone 80 MG Tab.Chew PO SCH ×3 (10:10→18:07)
[2023-09-08] MEDS: Prenatal Multivitamin with Calcium/Folic Acid/Iron Tab PO SCH (10:10)
[2023-09-08] MEDS: Docusate Sodium 100 MG Cap PO SCH (10:11)
[2023-09-08] MEDS: Ibuprofen 600 MG Tab PO PRN (12:05)
[2023-09-08] MEDS: Acetaminophen/oxyCODONE 325-5 MG Tab PO PRN (18:06)
[2023-09-09] MEDS: Docusate Sodium 100 MG Cap PO SCH ×2 (02:45→09:27)
[2023-09-09] MEDS: Ibuprofen 600 MG Tab PO PRN (02:48)
[2023-09-09] MEDS: Simethicone 80 MG Tab.Chew PO SCH ×2 (02:49→09:27)
[2023-09-09] MEDS: Prenatal Multivitamin with Calcium/Folic Acid/Iron Tab PO SCH (09:27)
[2023-09-09] MEDS: Acetaminophen/oxyCODONE 325-5 MG Tab PO PRN (09:28)
[2023-09-09 10:12] VITALS: BP 129/77; PULSE 78
== END 2023-09-09 09:47 | disposition home or self-care (01) | DRG 788 ==
LOC: JD.OB 04:54 → JD.MS 07:31 → JD.OB 08:20 → JD.ICU 08:21 → JD.OB 13:30
PROVIDERS: ADMIT Obstetrics & Gynecology; ATTEND Obstetrics & Gynecology
PROC: 10D00Z1 Extraction of Products of Conception, Low, Open Approach (ICD-10-PCS; principal; 2023-09-07 08:00)
DX: O34.211 Maternal care for low transverse scar from previous cesarean delivery (principal); O99.824 Streptococcus B carrier state complicating childbirth; O35.BXX0 Maternal care for other (suspected) fetal abnormality and damage, fetal cardiac anomalies, not applicable or unspecified; O99.214 Obesity complicating childbirth; O16.5 Unspecified maternal hypertension, complicating the puerperium; Z3A.38 38 weeks gestation of pregnancy; Z37.0 Single live birth
CPT/HCPCS: 01961; 36415; 59025; 85025; 86592; 86850; 86900; 86901; A9270-GY; J0665; J0690; J1200; J1885; J2274; J2371; J2405; J2590; J2765; J3010; J3490; J7120